=== PATIENT | female | born 1955 ===

== ENCOUNTER 2018-12-08 22:13 | Observation (INO) | payer BC ==
--- NOTE | 2018-12-08 22:22 | C.PDOC ---
History Of Present Illness 63 y/o female pt with hx of hyperthyroidism presents to the ER with family c/o dizziness and near syncope x1 hour ago. Pt reports the dizziness is non- constant, feels like vertigo and is worse with movement. Pt notes of similar sx before when she was diagnosed with meniere's disease. Pt denies any auditory complaints, headache, fever, stiff neck, fall, trauma, palpitations, chest pain or any type of throat issues. However, pt is on Keflex for strep throat and reports sx has improved and she does not have any difficulty in eating, swallowing or have any change in her voice. Time Seen by Provider: 12/08/18 22:22 Chief Complaint (Nursing): Dizziness/Lightheaded History Per: Patient History/Exam Limitations: no limitations Onset/Duration Of Symptoms: Hrs (x1) Current Symptoms Are (Timing): Still Present Past Medical History Reviewed: Historical Data, Nursing Documentation, Vital Signs Vital Signs: Last Vital Signs Temp 97.5 F L 12/08/18 22:19 Pulse 81 12/08/18 22:19 Resp 25 H 12/08/18 22:19 BP 146/82 12/08/18 22:19 Pulse Ox 98 12/08/18 22:19 - Medical History PMH: HTN Family History: States: No Known Family Hx - Social History Hx Alcohol Use: No Hx Substance Use: No Review Of Systems Constitutional: Positive for: Other (near syncope ). Negative for: Fever, Chills Eyes: Negative for: Pain, Vision Change ENT: Negative for: Ear Pain, Ear Discharge, Mouth Swelling, Throat Pain Cardiovascular: Negative for: Chest Pain, Palpitations Respiratory: Negative for: Cough, Shortness of Breath Gastrointestinal: Negative for: Nausea, Vomiting, Abdominal Pain, Diarrhea Genitourinary: Negative for: Dysuria, Frequency, Incontinence Musculoskeletal: Negative for: Neck Pain, Shoulder Pain, Back Pain Skin: Negative for: Rash Neurological: Positive for: Dizziness (vertigo-like). Negative for: Weakness, Numbness Psych: Negative for: Anxiety Physical Exam - Physical Exam Appears: Non-toxic, No Acute Distress Skin: Warm, Dry Head: Atraumatic, Normacephalic Eye(s): bilateral: Normal Inspection, PERRL, EOMI Ear(s): Bilateral: Normal, Other (no erythema ) Oral Mucosa: Moist Neck: Trachea Midline, Supple, Other (no meningeal signs, negative kernig's and brudzinski's ) Chest: Symmetrical Cardiovascular: Rhythm Regular, No Friction Rub Respiratory: No Rales, No Rhonchi, No Wheezing Gastrointestinal/Abdominal: Soft, No Tenderness, No Distention Extremity: Bilateral: Normal Color And Temperature Pulses: Left Dorsalis Pedis: Normal (2+), Right Dorsalis Pedis: Normal (2+) Neurological/Psych: Oriented x3, Normal Speech, Normal Cognition, Normal Cranial Nerves, Normal Motor, Normal Sensation ED Course And Treatment - Laboratory Results Result Diagrams: 12/08/18 23:06 12/08/18 23:06 O2 Sat by Pulse Oximetry: 98 (RA) Pulse Ox Interpretation: Normal - CT Scan/US CT head Other Rad Studies (CT/US): Read By Radiologist, Radiology Report Reviewed CT/US Interpretation: Name:MINH HARMAN Exam Date:Dec 08, 2018 11:51:22 PM EDT. Modality Type:CT\SR. Description:CT - BRAIN. Gender:F Laterality:Not applicable. :57 Referring Physician:SHERLEY THOMAS. CT SCAN OF THE BRAIN WITHOUT IV CONTRAST. [facility] INDICATION: Dizziness. TECHNIQUE: Axial images of the brain obtained without IV contrast administration. Normal size of the ventricles and extra- axial spaces for the patient's age. Normal white matter tracts of the supratentorial brain. Normal basal ganglia and thalami. Normal brainstem. Normal cerebellum. There is no demonstrated extra-axial, intraparenchymal, or intraventricular hemorrhage. There are no findings of an acute ischemic infarction. Normal calvarium. There is no demonstrated fracture. Normal soft tissue structures. Normal visualized paranasal sinuses. Changes from prior left mastoidectomy. IMPRESSION: Normal unenhanced CT scan of the brain. . Electronically signed on Dec 09, 2018 12:14:09 AM EDT by: Kirsten Starr M.D., Certified by ABR, MSK, Neuroradiology Medical Decision Making Medical Decision Making: Differential Diagnosis included but are not limited to: pneumonia v.s. near syncope/BPV Plans: -- chem labs -- blood work -- EKG -- CXR -- CT head -- IV fluids -- Reglan -- Antivert EKG results: nml sinus 86 bpm no STEMI imaging, cth unremarkable cxr unremarkable given near syncopal episode, RF, will seek admission 0130 appreciate consult w/ Dr. Alejandro Mckeon- to admit to his service pt in NAD, agreeable to plan Disposition - Disposition Disposition Time: 01:30 Condition: STABLE - Clinical Impression Clinical Impression: Near syncope - Scribe Statement The provider has reviewed the documentation as recorded by the Vandana Santillan Do Provider Attestation: All medical record entries made by the Leslieibkiley were at my direction and personally dictated by me. I have reviewed the chart and agree that the record accurately reflects my personal performance of the history, physical exam, m edical decision making, and the department course for this patient. I have also personally directed, reviewed, and agree with the discharge instructions and disposition.
[2018-12-08 23:08] LABS: BASO # 0.1 K/uL (0.0-0.2); EOS # 0.2 K/uL (0.0-0.7); EOS % 2.2 % (0.0-4.0); HEMOGLOBIN 12.3 g/dL (11.0-16.0); LYMPH # 2.9 K/uL (1.0-4.3); LYMPH % 31.5 % (20.0-40.0); MEAN CELL VOLUME 88.3 fL (81.0-99.0); MEAN CORPUSCULAR HEMOGLOBIN 29.4 pg (27.0-31.0); MEAN CORPUSCULAR HGB CONC 33.3 g/dL (33.0-37.0); MEAN PLATELET VOLUME 9.1 fL (7.2-11.7); MONO # 0.6 K/uL (0.0-0.8); MONO % 6.2 % (0.0-10.0); NEUT # 5.4 K/uL (1.8-7.0); NEUT % 59.1 % (50.0-75.0); RBC 4.17 Mil/uL (3.80-5.20); RED CELL DISTRIBUTION WIDTH 15.2 % (11.5-14.5); WHITE BLOOD COUNT 9.1 K/uL (4.8-10.8)
[2018-12-08 23:11] LABS: VENOUS BLOOD GAS BASE EXCESS -6.3 mmol/L (0.0-2.0); VENOUS BLOOD GAS PCO2 66 mmHg (40-60); VENOUS BLOOD GAS PO2 41 mm/Hg (30-55); VENOUS BLOOD PH 7.16 (7.32-7.43)
[2018-12-08] MEDS: Sodium Chloride 0.9% 1,000 ML IV SCH (23:12)
[2018-12-08 23:22] LABS: ALB/GLOB RATIO 1.4 (1.0-2.1); ALBUMIN 4.2 g/dL (3.5-5.0); ALT/SGPT 8 U/L (9-52); AST/SGOT 24 U/L (14-36); BLOOD UREA NITROGEN 21 mg/dL (7-17); CALCIUM 9.4 mg/dl (8.6-10.4); GFR NON-AFRICAN AMERICAN > 60
[2018-12-09] MEDS: Sodium Chloride 0.9% 1,000 ML IV SCH ×3 (03:41→19:37)
--- NOTE | 2018-12-09 08:03 | CT ---
Date of service: 12/08/2018 PROCEDURE: CT HEAD WITHOUT CONTRAST. HISTORY: dizzy COMPARISON: None available. TECHNIQUE: Axial computed tomography images were obtained through the head/brain without intravenous contrast. Radiation dose: Total exam DLP = 1113.35 mGy-cm. This CT exam was performed using one or more of the following dose reduction techniques: Automated exposure control, adjustment of the mA and/or kV according to patient size, and/or use of iterative reconstruction technique. FINDINGS: HEMORRHAGE: No intracranial hemorrhage. BRAIN: No mass effect or edema. No atrophy or chronic microvascular ischemic changes. VENTRICLES: Unremarkable. No hydrocephalus. CALVARIUM: Unremarkable. PARANASAL SINUSES: Unremarkable as visualized. No significant inflammatory changes. MASTOID AIR CELLS: Unremarkable as visualized. No inflammatory changes. OTHER FINDINGS: None. IMPRESSION: No evidence of acute intracranial hemorrhage intracranial collection mass effect or midline shift. Preliminary report was submitted by [facility] Radiology contains concordant findings.
[2018-12-09] MEDS: Enoxaparin 40 mg Syringe SC SCH (09:38)
[2018-12-09] MEDS: Pantoprazole 40 mg EC Tab PO SCH (09:38)
[2018-12-09 14:30] LABS: CK-MB 0.62 ng/mL (0.0-3.38)
--- NOTE | 2018-12-09 16:14 | RAD ---
Date of service: 12/09/2018 HISTORY: cough COMPARISON: No prior. TECHNIQUE: Chest PA and lateral views FINDINGS: LUNGS: No active pulmonary disease. PLEURA: No significant pleural effusion identified. No pneumothorax apparent. CARDIOVASCULAR: No aortic atherosclerotic calcification present. Normal cardiac size. No pulmonary vascular congestion. OSSEOUS STRUCTURES: No significant abnormalities. VISUALIZED UPPER ABDOMEN: Normal. OTHER FINDINGS: None. IMPRESSION: No active disease.
--- NOTE | 2018-12-09 19:01 | CARD ---
APPROVED REPORT Date of service: 12/09/2018 EXAM: Two-dimensional and M-mode echocardiogram with Doppler and color Doppler. Other Information Quality : GoodRhythm : INDICATION Syncope 2D DIMENSIONS IVSd1.2 (0.7-1.1cm)Aortic Root (2D)2.6 (2.0-3.7cm) LVDd3.9 (3.9-5.9cm)LVOT Diameter1.9 (1.8-2.4cm) PWd1.1 (0.7-1.1cm)LVDs2.7 (2.5-4.0cm) FS (%) 31.4 %LVEF (%)59.9 (>50%) M-Mode DIMENSIONS Left Atrium (MM)3.79 (2.5-4.0cm)Aortic Root3.24 (2.2-3.7cm) Aortic Cusp Exc.1.68 (1.5-2.0cm) Mitral Valve MV E Wpkqavwo10.0cm/sMV A Gimzwzqm08.5cm/s TDI Lateral E' Peak V6.61cm/sMedial E' Peak V10.29cm/s Pulmonary Valve PV Peak Wrgkfqaq28.9cm/sPV Peak Grad.1mmHg Tricuspid Valve TR Peak Fisztwik399wq/sTR Peak Gr.[id number] LEFT VENTRICLE The left ventricle is normal size. There is normal left ventricular wall thickness. The left ventricular function is normal. The left ventricular ejection fraction is within the normal range. About 65% No regional wall motion abnormalities noted. The left ventricular diastolic function is normal. No left ventricle thrombus noted on this study. There is no ventricular septal defect visualized. There is no left ventricular aneurysm. There is no mass noted in the left ventricle. RIGHT VENTRICLE The right ventricle is normal size. There is normal right ventricular wall thickness. The right ventricular systolic function is normal. ATRIA The left atrium size is normal. The right atrium size is normal. The interatrial septum is intact with no evidence for an atrial septal defect. AORTIC VALVE The aortic valve is normal in structure and function. No aortic regurgitation is present. There is no aortic valvular stenosis. There is no aortic valvular vegetation. MITRAL VALVE The mitral valve is normal in structure and function. There is no evidence of mitral valve prolapse. There is no mitral valve stenosis. There is no mitral valve regurgitation noted. TRICUSPID VALVE The tricuspid valve is normal in structure and function. There is no tricuspid valve regurgitation noted. There is no tricuspid valve prolapse or vegetation. There is no tricuspid valve stenosis. PULMONIC VALVE The pulmonary valve is normal in structure and function. There is no pulmonic valvular regurgitation. There is no pulmonic valvular stenosis. GREAT VESSELS The aortic root is normal in size. The ascending aorta is normal in size. The pulmonary artery is normal. The IVC is normal in size and collapses >50% with inspiration. PERICARDIAL EFFUSION The pericardium appears normal. There is no pleural effusion. <Conclusion> Sub-optimal study quality, otherwise normal.
--- NOTE | 2018-12-09 19:53 | CP.PCM.HP ---
Past Patient History - Past Social History Smoking Status: Never Smoked - CARDIAC Hx Hypertension: Yes - ENDOCRINE/METABOLIC Other/Comment: thyroid - PSYCHIATRIC Hx Substance Use: No Meds Allergies/Adverse Reactions: Allergies Allergy/AdvReac Type Severity Reaction Status Date / Time No Known Allergies Allergy Unverified 12/08/18 22:21 Physical Exam - Constitutional Appears: Well - Head Exam Head Exam: ATRAUMATIC, NORMAL INSPECTION, NORMOCEPHALIC - Eye Exam Eye Exam: EOMI, Normal appearance, PERRL Pupil Exam: NORMAL ACCOMODATION, PERRL - ENT Exam ENT Exam: Mucous Membranes Moist, Normal Exam - Neck Exam Neck exam: Positive for: Normal Inspection - Respiratory Exam Respiratory Exam: Decreased Breath Sounds - Cardiovascular Exam Cardiovascular Exam: REGULAR RHYTHM, +S1, +S2 - GI/Abdominal Exam GI & Abdominal Exam: Diminished Bowel Sounds, Soft - Rectal Exam Rectal Exam: Deferred Results - Vital Signs Recent Vital Signs: Last Vital Signs Temp 98.1 F 12/09/18 15:25 Pulse 76 12/09/18 16:00 Resp 18 12/09/18 15:25 BP 126/70 12/09/18 15:25 Pulse Ox 98 12/09/18 16:00 - Labs Result Diagrams: 12/08/18 23:06 12/08/18 23:06 Labs: Laboratory Results - last 24 hr 12/08/18 12/08/18 12/08/18 23:05 23:06 23:06 WBC 9.1 RBC 4.17 Hgb 12.3 Hct 36.8 MCV 88.3 MCH 29.4 MCHC 33.3 RDW 15.2 H Plt Count 237 MPV 9.1 Neut % (Auto) 59.1 Lymph % (Auto) 31.5 [place] % (Auto) 6.2 Eos % (Auto) 2.2 Baso % (Auto) 1.0 Neut # (Auto) 5.4 Lymph # (Auto) 2.9 [place] # (Auto) 0.6 Eos # (Auto) 0.2 Baso # (Auto) 0.1 pO2 41 VBG pH 7.16 L* VBG pCO2 66 H* VBG HCO3 19.0 VBG Total CO2 25.5 VBG O2 Sat (Calc) 69.6 H VBG Base Excess -6.3 L VBG Potassium 3.2 L Sodium 148.0 138 Chloride 91.0 L 106 Glucose 77 Lactate 1.3 FiO2 21.0 Crit Value Called To Dr bass Crit Value Called By [facility] Crit Value Read Back Y Blood Gas Notified Time 2311 Potassium 3.9 Carbon Dioxide 27 Anion Gap 10 BUN 21 H Creatinine 0.8 Est GFR ( Amer) > 60 Est GFR (Non-Af Amer) > 60 Random Glucose 91 Calcium 9.4 Total Bilirubin 0.3 AST 24 ALT 8 L Alkaline Phosphatase 87 Total Creatine Kinase CK-MB (Mass) Troponin I < 0.0120 Total Protein 7.3 Albumin 4.2 Globulin 3.1 Albumin/Globulin Ratio 1.4 Venous Blood Potassium 3.2 L 12/09/18 13:47 WBC RBC Hgb Hct MCV MCH MCHC RDW Plt Count MPV Neut % (Auto) Lymph % (Auto) [place] % (Auto) Eos % (Auto) Baso % (Auto) Neut # (Auto) Lymph # (Auto) [place] # (Auto) Eos # (Auto) Baso # (Auto) pO2 VBG pH VBG pCO2 VBG HCO3 VBG Total CO2 VBG O2 Sat (Calc) VBG Base Excess VBG Potassium Sodium Chloride Glucose Lactate FiO2 Crit Value Called To Crit Value Called By Crit Value Read Back Blood Gas Notified Time Potassium Carbon Dioxide Anion Gap BUN Creatinine Est GFR ( Amer) Est GFR (Non-Af Amer) Random Glucose Calcium Total Bilirubin AST ALT Alkaline Phosphatase Total Creatine Kinase 100 CK-MB (Mass) 0.62 Troponin I < 0.0120 Total Protein Albumin Globulin Albumin/Globulin Ratio Venous Blood Potassium
[2018-12-10] MEDS: Sodium Chloride 0.9% 1,000 ML IV SCH (05:45)
[2018-12-10] MEDS ORDERED: Levothyroxine 100 MCG TAB PO SCH (06:30)
[2018-12-10 08:44] VITALS: O2SAT 97
[2018-12-10] MEDS: Pantoprazole 40 mg EC Tab PO SCH (10:14)
[2018-12-10] MEDS: Enoxaparin 40 mg Syringe SC SCH (10:26)
[2018-12-10] MEDS ORDERED: Pneumococcal 23-Valent Vaccine IM ONE (16:13)
--- NOTE | 2018-12-10 16:45 | CON ---
DATE: 12/09/2018 REFERRING PHYSICIAN: Adela Mckeon MD REASON FOR CONSULTATION: Near-syncope. HISTORY OF PRESENT ILLNESS: The patient is a 63-year-old lady with a past medical history of Meniere's disease and one episode of near-syncope in the past, hypertension and hypothyroidism. The patient was admitted because of an episode of near-syncope, described as lightheadedness and spinning of the head, lasted approximately less than an hour. The patient states that while she was eating and when she looked to the side, she felt dizziness, no associated nausea or vomiting, although the patient was diagnosed in the past with Meniere's disease and hypothyroidism. The patient denies chest pain, palpitation, shortness of breath, photophobia, phonophobia, numbness, tingling over the face or tongue, perioral numbness. No weakness of upper or lower extremities. No other associated symptoms. The patient states that she had similar symptom in the past briefly and did not last too long after a procedure on her ear. PAST MEDICAL HISTORY: As mentioned above. SOCIAL HISTORY: No smoker, ethanol or drug abuser. ALLERGIES: NO KNOWN ALLERGIC REACTION TO MEDICATIONS. FAMILY HISTORY: Noncontributory. REVIEW OF SYSTEMS: As per H and P and ER notes. PHYSICAL EXAMINATION: VITAL SIGNS: Blood pressure 146/82, pulse 81, respirations 25, temperature afebrile. NEUROLOGIC: Mental status: The patient is alert, awake and oriented x3. Normal naming, repetition and comprehension. No agnosia, no apraxia, no right to left confusion. No finger agnosia. Double simultaneous stimulation intact. Cranial nerves: Pupils 2 mm, bilaterally reactive to light and accommodation. Extraocular movements intact. V1 to V3 intact. No double vision. No blurry vision. No nystagmus. No field defect. Neck is supple. Accessory nerve intact. Motor: Normal tone in upper and lower extremities. No pronator drift. Upper extremity fine finger movement, finger tapping and alternative movement intact. Upper extremity deltoid, elbow pattern drafter 5/5. Lower extremity hip flexion, knee flexion and extension, ankle dorsiflexion, plantar extension 5/5. Deep tendon reflexes 2 in the upper and lower extremities, plantar flexion. Sensory: Pinprick, light touch and position intact. Coordination: [id number]-uh-szya and hdvq-[id number] intact. LABORATORY AND DIAGNOSTIC DATA: Labs reviewed. CAT scan of the brain reviewed, did not reveal significant findings. No acute findings. IMPRESSION: Lightheadedness versus vertigo with near-syncope, less likely to be secondary to neurological etiology. The patient's exam is within normal limits. CAT scan did not reveal significant findings. Carotid Doppler done, no official report. If the carotid is negative, she can have an EEG as an outpatient and followup. I have strongly recommended that the patient to be followed up by her primary physician after discharge. I will sign off the case. If needed, I can be called or Dr. Warren. Thank you for the consultation. Lalo Silverman MD
[2018-12-10 16:47] VITALS: PULSE 89
[2018-12-10 17:02] VITALS: BP 122/75; RESP 18; TEMP 98
--- NOTE | 2018-12-11 12:22 | CARD ---
APPROVED REPORT Date of service: 12/08/2018 EKG Measurement Heart [id number] <Conclusion> Normal sinus rhythm Normal ECG
--- NOTE | 2018-12-11 12:25 | VASCLAB ---
Date of service: 12/09/2018 PROCEDURE: Carotid Duplex Exam. HISTORY: Syncope COMPARISON: None available. TECHNIQUE: Grayscale and duplex Doppler evaluation of the cervical carotid and vertebral arteries were performed. The common carotid, carotid bifurcations and cervical Internal Carotid Artery (ICA) and proximal External Carotid Artery (ECA) were evaluated. The vertebral arteries were evaluated for gross patency and flow direction. Report prepared by CHRISTEN Goyal FINDINGS: RIGHT CAROTID ARTERIES: 1. Common Carotid Artery: No significant focal plaque formation of the right common carotid artery. Maximum Peak Systolic velocity: 74 cm/sec: End-diastolic velocity 14 cm/sec. 2. Carotid Bifurcation: plaque formation. Maximum Peak Systolic velocity: 52 cm/sec: End-diastolic velocity 16 cm/sec. 3. Internal Carotid Artery: Plaque description: 3.1. Proximal Segment: Peak systolic velocity 84 cm/sec: End-diastolic velocity 32 cm/sec - % stenosis 0-15% 3.2. Middle Segment: Peak systolic velocity 120 cm/sec: End-diastolic velocity 47 cm/sec - % stenosis 0-15% 3.3. Distal Segment: Peak systolic velocity 71 cm/sec: End-diastolic velocity 23 cm/sec - % stenosis 0-15% 4. External Carotid Artery: No significant focal plaque formation. Peak systolic velocity 95 cm/sec 5. ICA/CCA Ratio: 1.7 LEFT CAROTID ARTERIES: 1. Common Carotid Artery: No significant focal plaque formation of the left common carotid artery. Maximum Peak Systolic velocity: 90 cm/sec: End-diastolic velocity 23 cm/sec. 2. Carotid Bifurcation: plaque formation. Maximum Peak Systolic velocity: 85 cm/sec: End-diastolic velocity 21 cm/sec. 3. Internal Carotid Artery: Plaque description: 3.1. Proximal Segment: Peak systolic velocity 97 cm/sec: End-diastolic velocity 19 cm/sec - % stenosis 0-15% 3.2. Middle Segment: Peak systolic velocity 79 cm/sec: End-diastolic velocity 27 cm/sec - % stenosis 0-15% 3.3. Distal Segment: Peak systolic velocity 46 cm/sec: End-diastolic velocity 19 cm/sec - % stenosis 0-15% 4. External Carotid Artery: No significant focal plaque formation. Peak systolic velocity 68 cm/sec 5. ICA/CCA Ratio: 1.2 VERTEBRAL ARTERIES: 1. Right Vertebral Artery: The right vertebral artery flow direction is antegrade. 2. Left Vertebral Artery: The left vertebral artery flow direction is antegrade. OTHER FINDINGS: NONE IMPRESSION: RIGHT: Duplex scan does not suggest hemodynamically significant stenosis of the right extracranial carotid arteries. LEFT: Duplex scan does not suggest hemodynamically significant stenosis of the left extracranial carotid arteries.
[2018-12-12] MEDS ORDERED: Pneumococcal 23-Valent Vaccine IM ONE (10:00)
[2018-12-12] MEDS ORDERED: Influenza Vaccine 60 mcg/0.5 mL SYR (4YR UP) IM ONE (10:00)
== END 2018-12-10 19:30 | disposition home or self-care (01) ==
LOC: C.ER 22:13 → C.6T 12-09 01:25
PROVIDERS: ADMIT Internal Medicine Nephrology; ATTEND Internal Medicine Nephrology
DX: H81.09 Meniere's disease, unspecified ear (principal); E03.9 Hypothyroidism, unspecified; I10 Essential (primary) hypertension; J02.0 Streptococcal pharyngitis
CPT/HCPCS: 36415; 70450; 71046; 80053; 82803; 84443; 84484; 85025; 87040; 90732; 93005; 93306; 93880; 96374; 99285; G0009; G0378; J1650; J2765; J7030